=== PATIENT | male | born 1970 | race Caucasian/White ===

== ENCOUNTER 2020-10-29 05:46 | Day surgery (SDC) | payer BC ==
[2020-10-29] MEDS ORDERED: Lactated Ringers 1,000 ML IV SCH (06:30)
[2020-10-29] MEDS ORDERED: DIPRIVAN 200 MG/20 ML IV ONE ×2 (07:35→08:05)
[2020-10-29 08:56] VITALS: PULSE 72; O2SAT 96
[2020-10-29 09:00] VITALS: BP 129/62
--- NOTE | 2020-10-29 10:55 | OP ---
SURGERY DATE: 10/29/2020 SURGERY TIME: 737 PREOPERATIVE DIAGNOSIS: 1. LEFT LOWER QUADRANT ABDOMEN PAIN. POSTOPERATIVE DIAGNOSIS: 1. COLON POLYPS X 3. 2. PROMINENT ILEOCECAL VALVE. PROCEDURE: 1. Colonoscopy. SURGEON: Dr. Ronald Galdamez. ANESTHESIA: MAC by Elder Ta CRNA. SPECIMENS: 3 hot forceps polypectomies and 3 hot forceps biopsies from the ileocecal valve. DESCRIPTION OF PROCEDURE: After informed written consent was obtained, the patient was taken to the endoscopy suite. He was placed in the left lateral decubitus position and anesthesia was titrated to the desired level of consciousness. Digital rectal exam showed normal sphincter tone and no internal lesions. The scope was inserted in the rectum and sequentially the entire colonic mucosa was traversed. The ileocecal valve was verified with direct visualization. The ileocecal valve was prominent and enlarged appearing, but there was no obvious mucosal changes or discrete masses in this region. I did take 3 hot forceps biopsy samples from this enlarged pedunculated-appearing ileocecal valve. Photos were taken as well of this area. Upon withdrawal, there was a small sessile polyp in the hepatic flexure which was grasped with the forceps, cauterized, removed in its entirety, and sent for pathology. Likewise, another small sessile polyp was encountered in the distal transverse colon near the splenic flexure. It was also grasped, cauterized, and removed in its entirety. On further withdrawal, there was another sessile polyp in the distal sigmoid colon just prior to the valves of Cho which was also grasped with the forceps, cauterized, and removed in its entirety. Prior to withdrawal, retroflexion showed no internal lesions. The scope was removed and the patient was transferred to the recovery room in good condition. He will follow-up for pathology results in a week.
== END 2020-10-29 09:00 | disposition home or self-care (01) ==
LOC: SDC 05:46
PROVIDERS: ATTEND Family Medicine
DX: D12.3 Benign neoplasm of transverse colon (principal); D12.5 Benign neoplasm of sigmoid colon; E03.9 Hypothyroidism, unspecified; E78.5 Hyperlipidemia, unspecified; Z79.899 Other long term (current) drug therapy
CPT/HCPCS: 88305; J2704

== ENCOUNTER 2022-02-23 19:40 | Emergency (ER) | payer BC ==
--- NOTE | 2022-02-23 19:54 | ERPHSYRPT ---
- History of Present Illness Time Seen by Provider: 02/23/22 19:54 Historian: patient, family Exam Limitations: no limitations Physician History: This is a 52-year-old white male who has a history of hyperlipidemia, hypothyroidism and anxiety issues and presents with sudden onset of right flank pain that is sharp and achy with radiation to the right groin that occurred approximately 1700 this afternoon. The pain was significant enough that he took a tramadol at approximately 1730. Patient has a history of kidney stones as well as history of lithotripsy and ureteral stents placed in the past. He also noticed hematuria this afternoon as well. Patient denies nausea vomiting diarrhea. He also denies chest pain and shortness of breath. Timing/Duration: today Quality: aching Abdominal Pain Onset Location: flank (Right side) Pain Radiation: groin (Right groin) Severity of Pain-Max: moderate Severity of Pain-Current: moderate Modifying Factors: Improves With: nothing Associated Symptoms: denies symptoms Previous symptoms: same symptoms as today, no recent treatment Allergies/Adverse Reactions: Penicillins Allergy (Verified 10/29/20 06:19) Home Medications: Atorvastatin Calcium [Lipitor] 40 mg PO DAILY 10/14/20 [History] Levothyroxine Sodium [Levothyroxine] 125 mcg PO DAILY 10/14/20 [History] Sertraline HCl 50 mg [Zoloft 50 mg Tablet] 100 mg PO DAILY 10/14/20 [Hist ory] Hx Tetanus, Diphtheria Vaccination/Date Given: Yes Hx Influenza Vaccination/Date Given: No Hx Pneumococcal Vaccination/Date Given: No Travel Risk - International Travel Have you traveled outside of the country in past 3 weeks: No - Coronavirus Screening Are you exhibiting any of the following symptoms?: No Close contact with a COVID-19 positive Pt in past 14-21 Days: No - Review of Systems Constitutional: No Symptoms Eyes: No Symptoms Ears, Nose, & Throat: No Symptoms Respiratory: No Symptoms Cardiac: No Symptoms Abdominal/Gastrointestinal: No Symptoms Genitourinary Symptoms: Flank Pain (Right side), Other (Right side) Musculoskeletal: No Symptoms Skin: No Symptoms Neurological: No Symptoms Psychological: No Symptoms Endocrine: No Symptoms Hematologic/Lymphatic: No Symptoms Immunological/Allergic: No Symptoms All Other Systems: Reviewed and Negative - Past Medical History Pertinent Past Medical History: No Neurological History: No Pertinent History ENT History: No Pertinent History Cardiac History: No Pertinent History Respiratory History: No Pertinent History Endocrine Medical History: No Pertinent History Musculoskeletal History: No Pertinent History GI Medical History: No Pertinent History History: Other Psycho-Social History: No Pertinent History Male Reproductive Disorders: No Pertinent History Other Medical History: KIDNEY STONES - Past Surgical History Past Surgical History: Yes Neuro Surgical History: No Pertinent History Cardiac: No Pertinent History Respiratory: No Pertinent History Gastrointestinal: Hernia Repair Genitourinary: Other Musculoskeletal: No Pertinent History Male Surgical History: No Pertinent History Other Surgical History: cysto lithotripsy for kidney stones. ureter stents. in and out. - Social History Smoking Status: Never smoker Exposure to second hand smoke: No Drug Use: none Patient Lives Alone: No - Nursing Vital Signs Nursing Vital Signs: Initial Vital Signs Temperature 97.3 F 02/23/22 19:46 Pulse Rate 87 02/23/22 19:46 Respiratory Rate 18 02/23/22 19:46 Blood Pressure 155/91 02/23/22 19:46 O2 Sat by Pulse Oximetry 99 02/23/22 19:46 Pain Scale Pain Intensity 4 - Physical Exam General Appearance: mild distress, alert, anxiety, thin Eye Exam: PERRL/EOMI, eyes nml inspection Ears, Nose, Throat Exam: normal ENT inspection, moist mucous membranes Neck Exam: normal inspection, non-tender, supple, full range of motion Respiratory Exam: normal breath sounds, lungs clear, airway intact, No chest tenderness, No respiratory distress Cardiovascular Exam: regular rate/rhythm, normal heart sounds, normal peripheral pulses Gastrointestinal/Abdomen Exam: soft, normal bowel sounds, No tenderness Rectal Exam: not done Back Exam: normal inspection, normal range of motion, CVA tenderness, No vertebral tenderness (Right side) Extremity Exam: normal inspection, normal range of motion, pelvis stable Neurologic Exam: alert, oriented x 3, cooperative, 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 tested, normal mood/affect, nml cerebellar function, nml station & gait, sensation nml Skin Exam: normal color, warm, dry Lymphatic Exam: No adenopathy SpO2 Interpretation: normal O2 Delivery: Room Air - Course Nursing assessment & vital signs reviewed: Yes Ordered Tests: Active Orders 24 hr Category Date Time Status IV Insertion STAT Care 02/23/22 19:54 Active ABDOMEN AND PELVIS W/0 CONTRAS [CT] Stat Exams 02/23/22 19:54 Taken AMYLASE Stat Lab 02/23/22 19:55 Completed CBC W DIFF Stat Lab 02/23/22 19:55 Completed CMP Stat Lab 02/23/22 19:55 Completed LIPASE Stat Lab 02/23/22 19:55 Completed UA W/RFX CULTURE Stat Lab 02/23/22 20:57 Results Medication Summary Discontinued Medications Generic Name Dose Route Start Last Admin Trade Name Mis PRN Reason Stop Dose Admin Hydromorphone HCl 1 mg 02/23/22 19:54 02/23/22 20:00 Hydromorphone 1 Mg/1ml Inj 1 Mg/Ml Syringe IV 02/23/22 19:55 1 mg STAT ONE Administration Hydromorphone HCl Confirm 02/23/22 19:57 Hydromorphone 1 Mg/1ml Inj 1 Mg/Ml Syringe Administered 02/23/22 19:58 Dose 1 mg .ROUTE .STK-MED ONE Sodium Chloride 1,000 mls @ 999 mls/hr 02/23/22 19:54 02/23/22 21:11 Sodium Chloride 0.9% 1000 Ml IV 02/23/22 20:54 Infused .Q1H1M STA Infusion Sodium Chloride Confirm 02/23/22 19:57 Sodium Chloride 0.9% 1000 Ml Administered 02/23/22 19:58 Dose 1,000 mls @ ud .ROUTE .STK-MED ONE Ketorolac Tromethamine 30 mg 02/23/22 19:54 02/23/22 20:00 Ketorolac Tromethamine 30 Mg/Ml Inj IV 02/23/22 19:55 30 mg STAT ONE Administration Ketorolac Tromethamine Confirm 02/23/22 19:57 Ketorolac Tromethamine 30 Mg/Ml Inj Administered 02/23/22 19:58 Dose 30 mg .ROUTE .STK-MED ONE Ondansetron HCl 4 mg 02/23/22 19:54 02/23/22 19:59 Ondansetron Hcl 4 Mg/2 Ml Vial IV 02/23/22 19:55 4 mg STAT ONE Administration Ondansetron HCl Confirm 02/23/22 19:57 Ondansetron Hcl 4 Mg/2 Ml Vial Administered 02/23/22 19:58 Dose 4 mg .ROUTE .STK-MED ONE Tamsulosin HCl 0.4 mg 02/23/22 20:36 02/23/22 20:41 Tamsulosin Hcl 0.4 Mg Cap PO 02/23/22 20:37 0.4 mg STAT ONE Administration Tamsulosin HCl Confirm 02/23/22 20:41 Tamsulosin Hcl 0.4 Mg Cap Administered 02/23/22 20:42 Dose 0.4 mg .ROUTE .STK-MED ONE Lab/Rad Data: Laboratory Result Diagrams 02/23/22 19:55 02/23/22 19:55 Laboratory Results 02/23/22 02/23/22 02/23/22 Range/Units 20:57 19:55 19:55 WBC 7.5 (4.0-10.5) x10^3/uL RBC 5.44 (4.1-5.6) x10^6/uL Hgb 16.1 (12.5-18.0) g/dL Hct 47.6 (42-50) % MCV 87.5 (78-100) fL MCH 29.6 (26-32) pg MCHC 33.8 (32-36) g/dL RDW 13.8 (11.5-14.0) % Plt Count 234 (150-450) x10^3/uL MPV 9.1 (7.5-11.0) fL Gran % 57.0 (36.0-66.0) % Immature Gran % (Auto) 0.4 (0.00-0.4) % Nucleat RBC Rel Count 0.0 (0.00-0.1) % Eos # (Auto) 0.32 (0-0.5) x10^3/uL Immature Gran # (Auto) 0.03 (0.00-0.03) x10^3u/L Absolute Lymphs (auto) 2.28 (1.0-4.6) x10^3/uL Absolute Monos (auto) 0.52 (0.0-1.3) x10^3/uL Absolute Nucleated RBC 0.00 (0.00-0.01) x10^3u/L Lymphocytes % 30.5 (24.0-44.0) % Monocytes % 7.0 (0.0-12.0) % Eosinophils % 4.3 (0.00-5.0) % Basophils % 0.8 (0.0-0.4) % Absolute Granulocytes 4.27 (1.4-6.9) x10^3/uL Basophils # 0.06 (0-0.4) x10^3/uL Sodium 139 (137-145) mmol/L Potassium 3.8 (3.5-5.1) mmol/L Chloride 110 H (98-107) mmol/L Carbon Dioxide 20 L (22-30) mmol/L Anion Gap 13.2 (5-15) MEQ/L BUN 18 (9-20) mg/dL Creatinine 1.03 (0.66-1.25) mg/dL Estimated GFR > 60.0 ML/MIN Glucose 108 H (74-106) mg/dL Calcium 9.0 (8.4-10.2) mg/dL Total Bilirubin 0.70 (0.2-1.3) mg/dL AST 50 (17-59) U/L ALT 51 H (0-50) U/L Alkaline Phosphatase 151 H (38-126) U/L Serum Total Protein 7.4 (6.3-8.2) g/dL Albumin 4.3 (3.5-5.0) g/dL Amylase 73 (30-110) U/L Lipase 96 (23-300) U/L Urinalys Dipstick Clnc MAIN LAB Urine Color YELLOW (YELLOW) Urine Appearance CLEAR (CLEAR) Urine pH 5.5 (5-6) Ur Specific [place] >=1.030 (1.005-1.025) POC Urine Protein Conf TRACE (Negative) Urine Ketones NEGATIVE (NEGATIVE) Urine Nitrite NEGATIVE (NEGATIVE) Urine Bilirubin NEGATIVE (NEGATIVE) Urine Urobilinogen 0.2 (0-1) mg/dL Urine Leukocytes NEGATIVE (NEGATIVE) Urine WBC (Auto) Pending Urine RBC (Auto) Pending U Epithel Cells (Auto) Pending Urine Bacteria (Auto) Pending Urine RBC LARGE (0-5) Jay/ul Ur Culture Indicated? Pending Urine Glucose 100 (NEGATIVE) mg/dL - Progress Progress: improved, pain not gone completely Progress Note: 02/23/22 20:34 CAT scan of the abdomen pelvis without contrast shows a new 6 mm proximal right ureteral calculus at the level of L2-L3 with mild hydronephrosis. Counseled pt/family regarding: lab results, diagnosis, need for follow-up, rad results - Departure Departure Disposition: Home Clinical Impression: Right ureteral calculus Condition: Stable Critical Care Time: No Referrals: TOÑITO TOBAR MD [Primary Care Provider] - Follow up/PCP as directed Additional Instructions: Drink plenty of fluids. Take your medication as prescribed. Call your urologist tomorrow morning on 02/24/2022 to make arrange for follow-up appointment and further intervention as necessary. Prescriptions: Tamsulosin HCl 0.4 mg [Flomax 0.4 MG] 0.4 mg PO DAILY #7 cap Tramadol HCl 50 mg [Ultram 50 mg] 50 mg PO TID PRN #15 tablet MDD 3 PRN Reason: Moderate To Severe Pain
[2022-02-23] MEDS ORDERED: Hydromorphone 1 mg/ml Injection ONE (19:57)
[2022-02-23] MEDS ORDERED: Zofran 4 MG/2 ML VIAL ONE (19:57)
[2022-02-23] MEDS ORDERED: Sodium Chloride 0.9% 1000 ML 1,000 ML ONE (19:57)
[2022-02-23] MEDS ORDERED: TORAdol 30 mg Injection ONE (19:57)
[2022-02-23] MEDS: Zofran 4 MG/2 ML VIAL IV ONE (19:59)
[2022-02-23] MEDS: Hydromorphone 1 mg/ml Injection IV ONE (20:00)
[2022-02-23] MEDS: TORAdol 30 mg Injection IV ONE (20:00)
[2022-02-23] MEDS: Sodium Chloride 0.9% 1000 ML 1,000 ML IV STA (20:00)
[2022-02-23 20:03] LABS: Absolute Neutrophil Ct (ANC) 4.27 x10^3/uL (1.4-6.9); Basophil (Absolute #) 0.06 x10^3/uL (0-0.4); Eosinophil % 4.3 % (0.00-5.0); Eosinophil (Absolute #) 0.32 x10^3/uL (0-0.5); Hematocrit 47.6 % (42-50); Hemoglobin 16.1 g/dL (12.5-18.0); Lymphocyte (Absolute #) 2.28 x10^3/uL (1.0-4.6); Lymphocytes % 30.5 % (24.0-44.0); Mean Cell Volume 87.5 fL (78-100); Mean Corpuscular Hemoglobin 29.6 pg (26-32); Mean Corpuscular Hgb Concent. 33.8 g/dL (32-36); Mean Platelet Volume 9.1 fL (7.5-11.0); Monocyte (Absolute #) 0.52 x10^3/uL (0.0-1.3); Platelet Count 234 x10^3/uL (150-450); Red Blood Count 5.44 x10^6/uL (4.1-5.6); Red Cell Distribution Width 13.8 % (11.5-14.0); White Blood Count 7.5 x10^3/uL (4.0-10.5)
[2022-02-23 20:22] LABS: ALBUMIN 4.3 g/dL (3.5-5.0); ALKALINE PHOSPHATASE 151 U/L (38-126); AMYLASE 73 U/L (30-110); ANION GAP 13.2 MEQ/L (5-15); BLOOD UREA NITROGEN 18 mg/dL (9-20); CHLORIDE 110 mmol/L (98-107); Carbon Dioxide 20 mmol/L (22-30); Creatinine 1 1.03 mg/dL (0.66-1.25); EST GLOMERULAR FILTRATION RATE > 60.0 ML/MIN; Glucose 108 mg/dL (74-106); LIPASE 96 U/L (23-300); Potassium 3.8 mmol/L (3.5-5.1); SGOT/AST 50 U/L (17-59); SGPT/ALT 51 U/L (0-50); SODIUM 139 mmol/L (137-145); Total Protein 7.4 g/dL (6.3-8.2)
[2022-02-23] MEDS: Flomax 0.4 MG PO ONE (20:41)
[2022-02-23] MEDS ORDERED: Flomax 0.4 MG ONE (20:41)
[2022-02-23 21:17] VITALS: BP 138/92; O2SAT 93
[2022-02-23 21:30] LABS: Appearance CLEAR (CLEAR)
[2022-02-23 21:31] LABS: Bilirubin NEGATIVE (NEGATIVE); Dipstick done @ ? MAIN LAB; Glucose 100 mg/dL (NEGATIVE); Ketones NEGATIVE (NEGATIVE); Nitrite NEGATIVE (NEGATIVE); Ph 5.5 (5-6); Protein,Urine Dip TRACE (Negative); RBC LARGE Ery/ul (0-5); Specific Gravity >=1.030 (1.005-1.025); Urobilinogen 0.2 mg/dL (0-1)
[2022-02-23] MEDS ORDERED: ULTRAM 50 MG ONE (21:47)
[2022-02-23 21:49] LABS: Mucus SLIGHT /HPF (NEGATIVE); RBC 26-50 /HPF (0-2)
[2022-02-23] MEDS: ULTRAM 50 MG PO ONE (21:51)
[2022-02-23 21:58] LABS: Urine Cultured Indicated? YES
[2022-02-23 22:02] VITALS: PULSE 80
--- NOTE | 2022-02-24 08:52 | XRAY ---
Indication: Right flank and right lower quadrant pain. History kidney stone. Multiple contiguous axial images obtained through the abdomen and pelvis without contrast. Comparison: February 08, 2014 Lung bases again demonstrate mild bibasilar dependent atelectasis less than before. Stable tiny right middle lobe calcified granuloma. Heart not enlarged. Stomach is markedly distended with food/fluid. Noncontrasted stomach and bowel loops appear nonobstructed with normal appendix. Minimal descending and sigmoid diverticulosis without diverticulitis. Proximal right ureter demonstrates new 6 mm calculus, approximately L2-L3 level with mild hydronephrosis. Left kidney again demonstrates 3 nonobstructing punctate calculi. No free fluid/air. Spleen is enlarged measuring 14.7 cm. Remaining liver, pancreas, spleen, adrenal glands, kidneys, ureters, and bladder are unremarkable for noncontrast exam. Minimal aortoiliac calcifications without AAA. Osseous structures intact. No ventral or inguinal hernias. Impression: 1. New 6 mm proximal right ureter calculus producing partial obstruction. Additional nonobstructing left renal punctate calculi. 2. Incidental splenomegaly and colonic diverticulosis.
== END 2022-02-23 22:01 | disposition home or self-care (01) ==
LOC: ED 19:40
DX: N20.1 Calculus of ureter (principal); Z87.442 Personal history of urinary calculi; Z79.899 Other long term (current) drug therapy
CPT/HCPCS: 36000; 36415; 74176; 80053; 81015; 82150; 83690; 85025; 87086; 96360; 96374; 96375; 99284; J1170; J1885; J2405; A9270-GY